=== PATIENT | female | born 1955 | race Caucasian/White ===

== ENCOUNTER 2024-08-21 22:58 | Emergency (ER) | payer MEDICARE, MEDICAID ==
[~2024-08-21] VITALS: Ht 177.8 cm; Wt 55.5 kg
[2024-08-22 00:40] LABS: ANION GAP 7 mmol/L (8-16); CALCIUM, TOTAL 8.7 mg/dL (8.8-10.5); CARBON DIOXIDE 29 mmol/L (22-29); CHLORIDE 106 mmol/L (98-107); CREATININE 0.75 mg/dL (0.60-1.30); GLOMERULAR FILTR. RATE CALC > 60 mL/min (>60); GLUCOSE,RANDOM 102 mg/dL (70-110); POTASSIUM 4.1 mmol/L (3.5-5.1); SODIUM SERUM 142 mmol/L (136-145); UREA NITROGEN, BLOOD 24 mg/dL (7-18)
[2024-08-22 00:49] LABS: TROPONIN I-HIGH SENSITIVITY 5 ng/L (<51)
[2024-08-22 00:59] LABS: BASOPHILS % (AUTO) 0.5 % (0.0-2.0); HEMOGLOBIN 11.9 g/dL (12.0-16.0); LYMPHOCYTES # (AUTO) 1.5 K/uL (1.0-4.8)
[2024-08-22 01:02] LABS: EOSINOPHILS % (AUTO) 2.1 % (1.0-6.0); HEMATOCRIT 36.8 % (36-46); LYMPHOCYTES % (AUTO) 12.5 % (22.0-44.0); MEAN CORPUSCULAR HEMOGLOBIN 29.8 pg (26.0-34.0); MEAN CORPUSCULAR HGB CONC 32.5 G/dL (31.0-37.0); MEAN CORPUSCULAR VOLUME 92 fL (80-100); MONOCYTES % (AUTO) 8.8 % (2.0-9.0); NEUTROPHILS % (AUTO) 76.1 % (40.0-70.0); PLATELET COUNT (AUTO) 285 K/uL (150-450); RED BLOOD CELL COUNT(AUTO) 4.01 MIL/uL (4.00-5.20); RED CELL DISTRIBUTION WIDTH 14.3 % (11.5-14.5); WHITE BLOOD COUNT (AUTO) 11.8 K/uL (4.5-11.0)
[2024-08-22 02:00] VITALS: BP 129/68; PULSE 78; RESP 16; TEMP 97.3; O2SAT 99
== END 2024-08-22 02:46 | disposition home or self-care (01) ==
LOC: EMS 23:01
DX: R53.1 Weakness (principal); F31.9 Bipolar disorder, unspecified; Z87.891 Personal history of nicotine dependence
CPT/HCPCS: 80048; 84484; 85025; 93005; 99284

== ENCOUNTER 2024-09-01 07:34 | Inpatient (IN) | payer MEDICARE, MEDICAID ==
[~2024-09-01] VITALS: Ht 170.2 cm; Wt 59.1 kg
[2024-09-01] MEDS ORDERED: BENZ-247 PO (08:19)
[2024-09-01] MEDS ORDERED: LAMO-24 PO (08:19)
[2024-09-01] MEDS ORDERED: BUPR-514 PO (08:19)
[2024-09-01] MEDS ORDERED: QUET100T PO (08:19)
[2024-09-01 08:34] LABS: COVID AG,FIA SOURCE NASAL SWAB
[2024-09-01 08:36] LABS: BASOPHILS % (AUTO) 0.5 % (0.0-2.0); EOSINOPHILS % (AUTO) 1.4 % (1.0-6.0); HEMATOCRIT 35.4 % (36-46); HEMOGLOBIN 11.6 g/dL (12.0-16.0); LYMPHOCYTES # (AUTO) 1.2 K/uL (1.0-4.8); LYMPHOCYTES % (AUTO) 12.1 % (22.0-44.0); MEAN CORPUSCULAR HGB CONC 32.9 G/dL (31.0-37.0); MEAN CORPUSCULAR VOLUME 91 fL (80-100); MONOCYTES # (AUTO) 1.3 K/uL (0.1-1.0); MONOCYTES % (AUTO) 12.6 % (2.0-9.0); NEUTROPHILS # (AUTO) 7.4 K/uL (1.8-7.7); NEUTROPHILS % (AUTO) 73.4 % (40.0-70.0); PLATELET COUNT (AUTO) 280 K/uL (150-450); RED BLOOD CELL COUNT(AUTO) 3.88 MIL/uL (4.00-5.20); RED CELL DISTRIBUTION WIDTH 14.1 % (11.5-14.5); WHITE BLOOD COUNT (AUTO) 10.1 K/uL (4.5-11.0)
[2024-09-01 08:47] LABS: ANION GAP 8 mmol/L (8-16); CALCIUM, TOTAL 8.5 mg/dL (8.8-10.5); CARBON DIOXIDE 29 mmol/L (22-29); CHLORIDE 106 mmol/L (98-107); CREATININE 0.72 mg/dL (0.60-1.30); GLOMERULAR FILTR. RATE CALC > 60 mL/min (>60); GLUCOSE,RANDOM 100 mg/dL (70-110); POTASSIUM 3.6 mmol/L (3.5-5.1); SODIUM SERUM 143 mmol/L (136-145); UREA NITROGEN, BLOOD 31 mg/dL (7-18)
[2024-09-01 08:58] LABS: SARS-COV2 (COVID) ANTIGEN,FIA Negative (Negative)
[2024-09-01 09:11] LABS: ALCOHOL, BLOOD (SERUM) < 3 mg/dL (0-10)
[2024-09-01 09:57] LABS: APPEARANCE,URINE HAZY (CLEAR); BILIRUBIN,URINE NEGATIVE (NEGATIVE); COLOR,URINE YELLOW (YELLOW); GLUCOSE, URINE (UA) NEGATIVE (NEGATIVE); LEUKOCYTE ESTERASE ,URINE LARGE (NEGATIVE); NITRATE,URINE POSITIVE (NEGATIVE); OCCULT BLOOD,URINE TRACE (NEGATIVE); PH,URINE 5.5 (5.0-8.0); PH,URINE DRUG SCREEN 5.5 (5.0-8.0); PROTEIN,URINE TRACE mg/dL (NEGATIVE); SPECIFIC GRAVITIY, URINE 1.026 (1.003-1.030); UROBILINOGEN,URINE <=1.0 mg/dL (<=1.0)
[2024-09-01 10:09] LABS: BACTERIA,URINE Moderate /HPF (None Seen); SQUAMOUS EPITHELIAL CELL,UR Few /LPF (None Seen); WBC,URINE 26-50 /HPF (0-5)
[2024-09-01 10:10] LABS: ALCOHOL, URINE DRUG SCREEN NEGATIVE (NEGATIVE); AMPHET/METH SCREEN,URINE NEGATIVE (NEGATIVE); BARBITURATE SCREEN, URINE NEGATIVE (NEGATIVE); BENZODIAZEPINES SCREEN,URINE NEGATIVE (NEGATIVE); CANNABINOID SCREEN,URINE NEGATIVE (NEGATIVE); COCAINE SCREEN,URINE NEGATIVE (NEGATIVE); METHADONE SCREEN, URINE NEGATIVE (NEGATIVE); OPIATE SCREEN,URINE NEGATIVE (NEGATIVE); PHENCYCLIDINE SCREEN,URINE NEGATIVE (NEGATIVE)
[2024-09-01] MEDS: CefTRIAXone 1 GM/DEXTROSE 50 ML IV ONE (11:38)
[2024-09-01] MEDS: LORazepam 2 MG TABLET PO ONE (15:19)
[2024-09-01] MEDS: DiphenhydrAMINE HCL 25 MG CAPSULE PO ONE (15:20)
[2024-09-01] MEDS ORDERED: ALBUTEROL SULFATE 2.5 MG/0.5 ML NEB SOLUTION NEB PRN (15:45)
[2024-09-01] MEDS ORDERED: ZOLPIDEM TARTRATE 5 MG TABLET PO PRN (15:45)
[2024-09-01] MEDS ORDERED: MAGNESIUM HYDROXIDE SUSPENSION 30 ML UDCUP PO PRN (15:45)
[2024-09-01] MEDS ORDERED: ONDANSETRON HCL 4 MG/2 ML VIAL IVP PRN (15:45)
[2024-09-01] MEDS ORDERED: ACETAMINOPHEN 325 MG TABLET PO PRN (15:45)
[2024-09-01] MEDS ORDERED: MORPHINE SULFATE 2 MG/ML SYRINGE IVP PRN (15:45)
[2024-09-01] MEDS ORDERED: IPRATROPIUM BROMIDE 0.5 MG/2.5 ML NEB SOLUTION NEB PRN (15:45)
[2024-09-01] MEDS ORDERED: BISACODYL 10 MG RECTAL RECTAL SUPPOSITORY PR PRN (15:45)
[2024-09-01] MEDS: HEPARIN SODIUM,PORCINE 5,000 UNITS/ML VIAL SQ SCH (15:55)
[2024-09-01 18:13] VITALS: BP 133/67; PULSE 91; RESP 15; TEMP 98.1; O2SAT 99
[2024-09-01 18:46] VITALS: BP 136/72; PULSE 90; RESP 17; TEMP 97.7; O2SAT 98
[2024-09-01 19:41] VITALS: BP 134/87; PULSE 92; RESP 18; TEMP 97.8; O2SAT 96
[2024-09-01] MEDS: QUEtiapine FUMARATE 100 MG TABLET PO SCH (21:00)
[2024-09-01] MEDS: BENZTROPINE MESYLATE 1 MG TABLET PO SCH (21:00)
[2024-09-02 04:05] VITALS: BP 116/56; PULSE 84; RESP 18; TEMP 97.6; O2SAT 96
[2024-09-02] MEDS: PANTOPRAZOLE SODIUM 40 MG DR TABLET PO SCH (08:30)
[2024-09-02] MEDS: LamoTRIgine 100 MG TABLET PO SCH (08:30)
[2024-09-02] MEDS: BuPROPion HCL XL 150 MG ER TABLET PO SCH (08:30)
[2024-09-02 09:13] VITALS: BP 121/65; PULSE 85; RESP 18; TEMP 98; O2SAT 96
[2024-09-02] MEDS: CefTRIAXone 1 GM/DEXTROSE 50 ML IV SCH (12:00)
[2024-09-02 16:07] VITALS: BP 105/65; PULSE 73; RESP 18; TEMP 98.7; O2SAT 95
[2024-09-02] MEDS ORDERED: DiphenhydrAMINE HCL 50 MG/ML VIAL IM ONE (17:30)
[2024-09-02] MEDS ORDERED: HALOPERIDOL LACTATE 5 MG/ML VIAL IM ONE (17:30)
[2024-09-02] MEDS ORDERED: LORazepam 2 MG/ML VIAL IM ONE (17:30)
[2024-09-02] MEDS: LORazepam 2 MG/ML VIAL IM ONE (17:59)
[2024-09-02 20:03] VITALS: BP 119/66; PULSE 92; RESP 20; TEMP 98.8; O2SAT 95
[2024-09-02] MEDS: QUEtiapine FUMARATE 200 MG TABLET PO SCH (21:03)
[2024-09-02] MEDS: BENZTROPINE MESYLATE 0.5 MG TABLET PO SCH (21:03)
[2024-09-02] MEDS: QUEtiapine FUMARATE 25 MG TABLET PO SCH (21:04)
[2024-09-03 03:26] VITALS: BP 131/63; PULSE 80; RESP 20; TEMP 98.5; O2SAT 96
[2024-09-03 07:33] VITALS: BP 123/78; PULSE 98; RESP 18; TEMP 98.1; O2SAT 96
[2024-09-03] MEDS: LamoTRIgine 25 MG TABLET PO SCH (08:26)
[2024-09-03] MEDS: BuPROPion HCL XL 150 MG ER TABLET PO SCH (08:27)
[2024-09-03] MEDS: QUEtiapine FUMARATE 25 MG TABLET PO PRN (08:27)
[2024-09-03 15:34] VITALS: BP 133/56; PULSE 88; RESP 18; TEMP 97.9; O2SAT 97
[2024-09-03 20:12] VITALS: BP 139/67; PULSE 93; RESP 20; TEMP 98.4; O2SAT 98
[2024-09-03] MEDS: HYDROCODONE/ACETAMINOPHEN 5-325 MG TABLET PO PRN (21:58)
[2024-09-04 08:07] VITALS: BP 129/73; PULSE 78; RESP 18; TEMP 97.6; O2SAT 99
[2024-09-04] MEDS ORDERED: BUPR-514 PO (08:41)
[2024-09-04] MEDS ORDERED: QUET25TA36 PO (08:41)
[2024-09-04] MEDS ORDERED: LAMO25TA36 PO (08:41)
[2024-09-04] MEDS ORDERED: QUET200T30 PO (08:41)
[2024-09-04] MEDS ORDERED: BENZ0.5T52 PO (08:41)
[2024-09-04] MEDS: CEPHALEXIN MONOHYDRATE 500 MG CAPSULE PO SCH (11:35)
[2024-09-04 15:32] VITALS: BP 120/75; PULSE 95; RESP 18; TEMP 98.3; O2SAT 99
[2024-09-04] MEDS ORDERED: CEPH-558 PO (17:47)
[2024-09-04] MEDS ORDERED: CIPR500T10 PO (17:49)
[2024-09-05 03:35] LABS: BASOPHILS % (AUTO) 0.6 % (0.0-2.0); EOSINOPHILS % (AUTO) 1.3 % (1.0-6.0); HEMOGLOBIN 12.1 g/dL (12.0-16.0); LYMPHOCYTES % (AUTO) 10.4 % (22.0-44.0); MEAN CORPUSCULAR HGB CONC 32.8 G/dL (31.0-37.0); MEAN CORPUSCULAR VOLUME 92 fL (80-100); MONOCYTES # (AUTO) 0.9 K/uL (0.1-1.0); MONOCYTES % (AUTO) 9.3 % (2.0-9.0); NEUTROPHILS # (AUTO) 7.4 K/uL (1.8-7.7); NEUTROPHILS % (AUTO) 78.4 % (40.0-70.0); PLATELET COUNT (AUTO) 311 K/uL (150-450); RED BLOOD CELL COUNT(AUTO) 4.04 MIL/uL (4.00-5.20); RED CELL DISTRIBUTION WIDTH 14.4 % (11.5-14.5); WHITE BLOOD COUNT (AUTO) 9.4 K/uL (4.5-11.0)
[2024-09-05 05:10] VITALS: BP 121/59; PULSE 94; RESP 18; TEMP 98.5; O2SAT 97
[2024-09-05 08:33] VITALS: BP 127/83; PULSE 95; RESP 18; TEMP 98; O2SAT 100
[2024-09-05 10:16] LABS: BASOPHILS % (AUTO) 1.1 % (0.0-2.0); EOSINOPHILS % (AUTO) 2.2 % (1.0-6.0); HEMOGLOBIN 12.8 g/dL (12.0-16.0); LYMPHOCYTES # (AUTO) 1.1 K/uL (1.0-4.8); MEAN CORPUSCULAR HGB CONC 32.9 G/dL (31.0-37.0); MEAN CORPUSCULAR VOLUME 91 fL (80-100); MONOCYTES # (AUTO) 1.1 K/uL (0.1-1.0); MONOCYTES % (AUTO) 11.1 % (2.0-9.0); NEUTROPHILS # (AUTO) 7.6 K/uL (1.8-7.7); NEUTROPHILS % (AUTO) 74.6 % (40.0-70.0); PLATELET COUNT (AUTO) 323 K/uL (150-450); RED BLOOD CELL COUNT(AUTO) 4.27 MIL/uL (4.00-5.20); RED CELL DISTRIBUTION WIDTH 14.3 % (11.5-14.5); WHITE BLOOD COUNT (AUTO) 10.1 K/uL (4.5-11.0)
== END 2024-09-05 12:00 | disposition home or self-care (01) | DRG 689 ==
LOC: EMS 07:44 → EDH 11:55 → 6N 18:06 → 6S 09-04 20:10
PROVIDERS: ADMIT Hospitalist; ATTEND Hospitalist
DX: N39.0 Urinary tract infection, site not specified (principal); G93.41 Metabolic encephalopathy; D64.9 Anemia, unspecified; B96.20 Unspecified Escherichia coli [E. coli] as the cause of diseases classified elsewhere; Z20.822 Contact with and (suspected) exposure to COVID-19; F25.9 Schizoaffective disorder, unspecified; Z87.891 Personal history of nicotine dependence; Z88.0 Allergy status to penicillin; Z79.899 Other long term (current) drug therapy
CPT/HCPCS: 70450; 70486; 80048; 80307; 81001; 85025; 86850; 86900; 86901; 87077; 87086; 87186; 99285; G0480; J0696; J1644; J2060